=== PATIENT | male | born 1965 | race Caucasian/White ===

== ENCOUNTER 2019-07-17 07:01 | Emergency (ER) | payer SELFPAY ==
[~2019-07-17] VITALS: Ht 175.3 cm; Wt 96.5 kg
[2019-07-17 07:58] VITALS: BP 156/94
== END 2019-07-17 08:06 | disposition home or self-care (01) ==
LOC: ED 07:39
DX: R09.89 Other specified symptoms and signs involving the circulatory and respiratory systems (principal); Z87.891 Personal history of nicotine dependence
CPT/HCPCS: 99281